=== PATIENT | female | born 1970 | race Two or more races ===

== ENCOUNTER 2017-09-03 02:45 | Inpatient (IN) | payer MEDICARE, MEDICAID ==
[~2017-09-03] VITALS: Ht 160 cm; Wt 72.7 kg
[~2017-09-03 02:45] MED LIST: B-COCAP34 OR; BLAC40CA3 PO; BUPR100T14 PO; CALC667C PO; CHOLCAP4 PO; CLON1TAB3 PO; FLUO-125 PO; FLUT250M2 INH; HYDR-4072 PO; HYDR200T PO; IPRAAER6 IN; METO10TA3 PO; MULTCAP45 PO; MYCO500T PO; OMEP20CA74 PO; POTA20TA53 PO; PRIM50TA29 PO; SULF400T PO; ZINC220C8 PO
[2017-09-03] MEDS ORDERED: methylPREDNISolone SOD SUCC 125 MG/2 ML VL IV ONE (03:15)
[2017-09-03] MEDS ORDERED: ONDANSETRON HCL 4 MG/2 ML VIAL IV ONE (03:15)
[2017-09-03] MEDS ORDERED: MORPHINE SULF INJ 2 MG/ML SYRINGE 1ML IV ONE (03:15)
[2017-09-03 03:57] LABS: Basophils # (auto) 0 uL; Lymphocytes # (auto) 2.1 uL; Mean Platelet Volume 7.8 fL (6.9-10.8); Monocytes # (auto) 0.6 uL; Neutrophils # (auto) 3.2 uL; Neutrophils % (auto) 52.6 % (37.0-80.0)
[2017-09-03 04:00] LABS: Basophils % (auto) 0.6 % (0.0-2.0); Eosinophils # (auto) 0.1 uL; Eosinophils % (auto) 2.5 % (0.0-7.0); Hematocrit 30.1 % (36.0-46.0); Hemoglobin 9.9 g/dL (12.2-16.2); Lymphocytes % (auto) 34.8 % (10.0-50.0); Mean Corpuscular Hemoglobin 26.5 pg (28.0-32.0); Mean Corpuscular Hgb Conc. 32.8 g/dL (32.0-36.0); Mean Corpuscular Volume 80.7 fL (80.0-100.0); Monocytes % (auto) 9.5 % (0.0-12.0); Nucleated Red Blood Cells % 0.1 %; Platelet Count (auto) 307 10^3/uL (140-450); Red Cell Distribution Width 15.4 % (11.8-14.3)
[2017-09-03 04:27] LABS: Albumin 3.1 g/dL (3.4-5.0); Alkaline Phosphatase 105 U/L (45-117); Anion Gap 8 (5-15); Aspartate Aminotransferase 19 U/L (15-37); BUN/Creatinine Ratio 12.7; Bilirubin, Total 0.2 mg/dL (0.2-1.0); Blood Urea Nitrogen 8 mg/dL (7-18); Carbon Dioxide 27 mmol/L (21-32); Chloride 100 mmol/L (98-107); GFR African American 129 mL/min; GFR Non-African American 107 mL/min; Glucose 82 mg/dL (74-106); Magnesium 2.7 mg/dL (1.6-2.6); Potassium 3.7 mmol/L (3.5-5.1); Sodium 135 mmol/L (136-145); Total Protein 6.5 g/dL (6.4-8.2)
[2017-09-03] MEDS ORDERED: SODIUM CHLORIDE 0.9% 500 ML IV ONE (05:30)
[2017-09-03] MEDS ORDERED: ACETAMINOPHEN 325 MG TAB PO PRN (06:45)
[2017-09-03] MEDS ORDERED: NITROGLYCERIN 0.4 MG SL TAB SL PRN (06:45)
[2017-09-03] MEDS: buPROPion HCL 100 MG TAB PO SCH (10:00)
[2017-09-03] MEDS: FLUoxetine HCL 20 MG CAP PO SCH (10:00)
[2017-09-03] MEDS: ENOXAPARIN SOD 40 MG/0.4 ML SYRINGE SC SCH (10:00)
[2017-09-03] MEDS: HYDROXYCHLOROQUINE SULFATE 200 MG TAB PO SCH (10:00)
[2017-09-03] MEDS: FAMOTIDINE 20 MG TAB PO SCH ×2 (10:00→22:05)
[2017-09-03] MEDS: MYCOPHENOLATE 500 MG TAB PO SCH ×2 (10:38→22:04)
[2017-09-03] MEDS: PRIMIDONE 50 MG TAB PO SCH ×2 (10:38→22:05)
[2017-09-03] MEDS: LEVOFLOXACIN 500MG 100 ML IV SCH (10:38)
[2017-09-03] MEDS: ONDANSETRON HCL 4 MG/2 ML VIAL IV PRN (15:08)
[2017-09-03] MEDS: MORPHINE SULF INJ 2 MG/ML SYRINGE 1ML IV PRN (15:08)
[2017-09-03 20:00] VITALS: BP 105/54
[2017-09-03 20:01] VITALS: BP 100/64
[2017-09-03] MEDS: HYDROcodone-ACET 5/325MG TAB PO PRN (20:26)
[2017-09-03 22:00] VITALS: BP 105/54
[2017-09-03] MEDS: ALBUTEROL SULF 2.5 MG/0.5ML(0.5%) NEB SOLN NEB PRN (22:33)
[2017-09-03] MEDS: IPRATROPIUM BROM 0.5 MG/2.5ML INH SOL NEB PRN (22:33)
[2017-09-03] MEDS: TEMAZEPAM 15 MG CAP PO PRN (23:47)
[2017-09-04] VITALS (7 sets, daily range): BP systolic 89–98; BP diastolic 53–63
[2017-09-04] MEDS: HYDROcodone-ACET 5/325MG TAB PO PRN ×3 (00:45→22:32)
[2017-09-04] MEDS: ONDANSETRON HCL 4 MG/2 ML VIAL IV PRN (06:38)
[2017-09-04] MEDS: MORPHINE SULF INJ 2 MG/ML SYRINGE 1ML IV PRN (06:39)
[2017-09-04 06:42] LABS: Platelet Count (auto) 301 10^3/uL (140-450); White Blood Cell 6.1 10^3/uL (4.4-10.8)
[2017-09-04 06:45] LABS: Basophils # (auto) 0 uL; Basophils % (auto) 0.7 % (0.0-2.0); Eosinophils # (auto) 0.1 uL; Eosinophils % (auto) 2.4 % (0.0-7.0); Hematocrit 30.7 % (36.0-46.0); Hemoglobin 9.9 g/dL (12.2-16.2); Lymphocytes # (auto) 2.3 uL; Lymphocytes % (auto) 38.2 % (10.0-50.0); Mean Corpuscular Hemoglobin 26.4 pg (28.0-32.0); Mean Corpuscular Hgb Conc. 32.3 g/dL (32.0-36.0); Mean Corpuscular Volume 81.8 fL (80.0-100.0); Mean Platelet Volume 7.8 fL (6.9-10.8); Monocytes # (auto) 0.6 uL; Monocytes % (auto) 9.9 % (0.0-12.0); Neutrophils % (auto) 48.8 % (37.0-80.0); Nucleated Red Blood Cells % 0.2 %; Red Cell Distribution Width 15.7 % (11.8-14.3)
[2017-09-04 07:09] LABS: Albumin 2.9 g/dL (3.4-5.0); BUN/Creatinine Ratio 15.5; Bilirubin, Total 0.1 mg/dL (0.2-1.0); Calcium 7.9 mg/dL (8.5-10.1); Potassium 4.1 mmol/L (3.5-5.1); Total Protein 6.2 g/dL (6.4-8.2)
[2017-09-04] MEDS: FAMOTIDINE 20 MG TAB PO SCH ×2 (11:06→22:30)
[2017-09-04] MEDS: PRIMIDONE 50 MG TAB PO SCH ×2 (11:06→22:31)
[2017-09-04] MEDS: buPROPion HCL 100 MG TAB PO SCH (11:07)
[2017-09-04] MEDS: FLUoxetine HCL 20 MG CAP PO SCH (11:07)
[2017-09-04] MEDS: ENOXAPARIN SOD 40 MG/0.4 ML SYRINGE SC SCH (11:07)
[2017-09-04] MEDS: HYDROXYCHLOROQUINE SULFATE 200 MG TAB PO SCH (11:07)
[2017-09-04] MEDS: LEVOFLOXACIN 500MG 100 ML IV SCH (11:08)
[2017-09-04] MEDS: MYCOPHENOLATE 500 MG TAB PO SCH ×2 (11:11→22:32)
[2017-09-04] MEDS: IPRATROPIUM BROM 0.5 MG/2.5ML INH SOL NEB PRN (20:15)
[2017-09-04] MEDS: ALBUTEROL SULF 2.5 MG/0.5ML(0.5%) NEB SOLN NEB PRN (20:16)
[2017-09-04] MEDS: TEMAZEPAM 15 MG CAP PO PRN (22:33)
[2017-09-05 04:57] VITALS: BP 90/54
[2017-09-05 09:00] VITALS: BP 96/57
[2017-09-05] MEDS: LEVOFLOXACIN 500MG 100 ML IV SCH (09:41)
[2017-09-05] MEDS: buPROPion HCL 100 MG TAB PO SCH (09:42)
[2017-09-05] MEDS: PRIMIDONE 50 MG TAB PO SCH (09:42)
[2017-09-05] MEDS: ENOXAPARIN SOD 40 MG/0.4 ML SYRINGE SC SCH (09:42)
[2017-09-05] MEDS: FAMOTIDINE 20 MG TAB PO SCH (09:42)
[2017-09-05] MEDS: FLUoxetine HCL 20 MG CAP PO SCH (09:42)
[2017-09-05] MEDS: HYDROXYCHLOROQUINE SULFATE 200 MG TAB PO SCH (09:42)
[2017-09-05] MEDS: MYCOPHENOLATE 500 MG TAB PO SCH (09:44)
[2017-09-05 13:00] VITALS: BP 117/76
[2017-09-05] MEDS: HYDROcodone-ACET 5/325MG TAB PO PRN (14:54)
[2017-09-05 15:40] VITALS: BP 99/54
== END 2017-09-05 19:17 | disposition home or self-care (01) | DRG 205 ==
LOC: ER 02:53 → TELE 02:54 → TELE-E-ADS 15:44 → TELE-WESTW 18:55
PROVIDERS: ADMIT Nurse Practitioner; ATTEND Internal Medicine Cardiovascular Disease
DX: M94.0 Chondrocostal junction syndrome [Tietze] (principal); J96.90 Respiratory failure, unspecified, unspecified whether with hypoxia or hypercapnia; J84.10 Pulmonary fibrosis, unspecified; I27.20 Pulmonary hypertension, unspecified; M34.9 Systemic sclerosis, unspecified; E83.51 Hypocalcemia; F32.9 Major depressive disorder, single episode, unspecified; F41.9 Anxiety disorder, unspecified; D53.9 Nutritional anemia, unspecified; I10 Essential (primary) hypertension; R07.9 Chest pain, unspecified; Z90.3 Acquired absence of stomach [part of]; Z88.0 Allergy status to penicillin; Z79.899 Other long term (current) drug therapy
CPT/HCPCS: 36415; 71010; 80053; 83735; 84484; 85025; 93005; 94640; 96361; 96365; 96372; 96375; 99291; J1956; J2405; J7517

== ENCOUNTER → 2017-09-19 | Outpatient (CLI) | payer MEDICARE, MEDICAID ==
[2017-09-19 10:38] LABS: Eosinophils # (auto) 0.1 uL; Mean Corpuscular Hemoglobin 25.7 pg (28.0-32.0); Mean Corpuscular Volume 80.1 fL (80.0-100.0); Mean Platelet Volume 7.7 fL (6.9-10.8); Monocytes # (auto) 0.8 uL; Neutrophils # (auto) 4.5 uL
[2017-09-19 10:40] LABS: Basophils # (auto) 0 uL; Basophils % (auto) 0.6 % (0.0-2.0); Eosinophils % (auto) 1.6 % (0.0-7.0); Hematocrit 33.8 % (36.0-46.0); Hemoglobin 10.8 g/dL (12.2-16.2); Lymphocytes # (auto) 0.9 uL; Lymphocytes % (auto) 14.7 % (10.0-50.0); Mean Corpuscular Hgb Conc. 32.1 g/dL (32.0-36.0); Monocytes % (auto) 12.8 % (0.0-12.0); Neutrophils % (auto) 70.3 % (37.0-80.0); Platelet Count (auto) 348 10^3/uL (140-450); Red Cell Distribution Width 15.4 % (11.8-14.3); White Blood Cell 6.4 10^3/uL (4.4-10.8)
[2017-09-19 11:27] LABS: Albumin 3.6 g/dL (3.4-5.0); BUN/Creatinine Ratio 9.6; Bilirubin, Total 0.2 mg/dL (0.2-1.0); Calcium 8.3 mg/dL (8.5-10.1); Potassium 3.7 mmol/L (3.5-5.1); Total Protein 7.6 g/dL (6.4-8.2)
== END | disposition home or self-care (01) ==
LOC: LAB 09:28
PROVIDERS: ATTEND Internal Medicine
DX: M34.9 Systemic sclerosis, unspecified (principal); J84.10 Pulmonary fibrosis, unspecified; E87.5 Hyperkalemia
CPT/HCPCS: 36415; 80053; 85025